=== PATIENT | male | born 1980 | race Caucasian/White ===

== ENCOUNTER → 2019-09-03 | Outpatient (CLI) | payer BC ==
--- NOTE | 2019-09-04 19:26 | HOLTMON ---
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 MAX HR 140 MIN HR 46. MULTIPLE PACS,RARE PAC PAIRS AND RARE SV SHORT RUNS. PAGE [address] DEPRESSION WITH HR 140. MORE APPARENT THAN TRACING SELECTED ON PG 19. MOST OF PACS BETWEEN 2300 AND 0L00 SEE PG 5 SUMMARY MULTIPLE PACS AND DOCUMENTED ST DEPRESSION WITH FASTER HR Electronically Signed on 09-04-2019 19:26:12 EDT by Jen Real
== END ==
LOC: M EKG 09:56
PROVIDERS: ATTEND Surgery
DX: I47.9 Paroxysmal tachycardia, unspecified (principal)

== ENCOUNTER → 2020-10-16 | Outpatient (CLI) | payer BC ==
--- NOTE | 2020-10-16 09:31 | REP ---
INDICATION: ENLARGED LIVER. COMPARISON: None FINDINGS: Multiple ultrasonographic images of the liver show the hepatic parenchymal echo texture to appear unremarkable. There are no focal masses. There is no intrahepatic ductal dilatation. Multiple ultrasonographic images of the common bile duct show the common bile duct measure 3 mm in its greatest transverse dimension. Multiple ultrasonographic images of the gallbladder show no focal or diffuse gallbladder wall thickening. There are no echogenic foci within the gallbladder lumen, which casts acoustic shadows. There is no pericholecystic edema. Images of the pancreatic region show no gross abnormality. The imaged portion of the right kidney is unremarkable. IMPRESSION: Unremarkable right upper quadrant ultrasound. Accredited by the [employer] in General Ultrasound. <Electronically signed by Valentin Tierney > 10/16/20 0928
== END ==
LOC: M RAD 07:56
PROVIDERS: ATTEND Surgery
DX: K76.9 Liver disease, unspecified (principal)

== ENCOUNTER 2024-01-27 16:49 | Inpatient (IN) | payer OTHER ==
[~2024-01-27] VITALS: Ht 185.4 cm; Wt 66.8 kg
[~2024-01-27 16:49] MED LIST: B-12100010 PO; LEXA5TAB13 PO; NAPR220C14 PO; OMEP40CA4 PO; THERTAB52 PO; VITA100093 PO
[2024-01-27] MEDS ORDERED: AMOX875T (17:13)
[2024-01-27 18:11] LABS: BASO % 0.2 % (0.0-1.0); EOS % 0.1 % (0.0-3.0); HEMATOCRIT 41.2 % (42.0-52.0); HEMOGLOBIN 14.2 g/dl (13.5-17.5); LYMPH # 0.9 10^3/uL (1.5-5.0); LYMPH % 5.3 % (24.0-44.0); MEAN CORPUSCULAR HEMOGLOBIN 32.4 pg (27.0-33.0); MEAN CORPUSCULAR HGB CONC 34.5 g/dl (32.0-36.5); MEAN CORPUSCULAR VOLUME 94.1 fl (80.0-96.0); MONO # 1.6 10^3/uL (0.0-0.8); MONO % 8.8 % (2.0-8.0); NEUTROPHILS % 85.1 % (36.0-66.0); PLATELET COUNT, AUTOMATED 229 10^3/uL (150-450); RED BLOOD COUNT 4.38 10^6/uL (4.30-6.10); WHITE BLOOD COUNT 17.6 10^3/uL (4.0-10.0)
[2024-01-27 18:19] LABS: BLOOD UREA NITROGEN 11 MG/DL (9-23); CALCIUM LEVEL 9.6 MG/DL (8.5-10.1); CARBON DIOXIDE LEVEL 31 MMOL/L (20-31); CHLORIDE LEVEL 101 MMOL/L (98-107); CREATININE FOR GFR 0.83 MG/DL (0.70-1.30); GLOMERULAR FILTRATION RATE > 60.0 (>60); GLUCOSE, FASTING 113 MG/DL (60-100); POTASSIUM SERUM 4.1 MMOL/L (3.5-5.1); SODIUM LEVEL 137 MMOL/L (136-145)
[2024-01-27] MEDS ORDERED: ISOVUE-370 76% 100ML VIAL As Ordered ONE (19:57)
[2024-01-27] MEDS: NS 1,000 ML IV ONE (20:39)
[2024-01-27] MEDS: KETOROLAC 30 MG/ML 1ML VIAL IV ONE (20:39)
[2024-01-27] MEDS: ACETAMINOPHEN *IV* 1,000 MG in IV 1 EA IV ONE (20:39)
[2024-01-27] MEDS: AMPICILLIN SOD/SULBACTAM SOD 3 GM in D5W MINI-BAG PLUS 100 ML IV ONE (21:17)
[2024-01-27] MEDS ORDERED: NAPR-1010 PO (22:05)
[2024-01-27] MEDS ORDERED: AMOX875T PO (22:05)
[2024-01-27] MEDS ORDERED: LEXA1TAB PO (22:05)
[2024-01-27] MEDS ORDERED: MULT-40 PO (22:05)
[2024-01-27] MEDS ORDERED: HOME MED LIST COMPLETE! XX SCH (22:10)
[2024-01-27] MEDS ORDERED: PILL CUTTER 1 EACH XX PRN (23:00)
[2024-01-27 23:42] VITALS: BP 153/72; TEMP 97.5; O2SAT 96
[2024-01-27] MEDS: ESCITALOPRAM OXALATE 10 MG TAB (LEXAPRO) PO SCH (23:45)
[2024-01-27] MEDS: CYANOCOBALAMIN 500 MCG TAB PO SCH (23:46)
[2024-01-28] VITALS (17 sets, daily range): BP systolic 119–153; BP diastolic 23–82; TEMP 97.3–99; O2SAT 94–97
[2024-01-28] MEDS: AMPICILLIN SOD/SULBACTAM SOD 3 GM in D5W MINI-BAG PLUS 100 ML IV SCH (02:42)
[2024-01-28] MEDS: ACETAMINOPHEN TAB 650MG DOSE (2X325MG) PO PRN (03:24)
[2024-01-28] MEDS: KETOROLAC 30 MG/ML 1ML VIAL IV PRN (03:25)
[2024-01-28 06:56] LABS: BASO % 0.2 % (0.0-1.0); EOS % 0.1 % (0.0-3.0); HEMATOCRIT 40.1 % (42.0-52.0); HEMOGLOBIN 13.6 g/dl (13.5-17.5); LYMPH % 5.2 % (24.0-44.0); MEAN CORPUSCULAR HEMOGLOBIN 32.3 pg (27.0-33.0); MEAN CORPUSCULAR HGB CONC 33.9 g/dl (32.0-36.5); MEAN CORPUSCULAR VOLUME 95.2 fl (80.0-96.0); MONO # 1.7 10^3/uL (0.0-0.8); MONO % 9.3 % (2.0-8.0); NEUTROPHILS # 15.7 10^3/uL (1.5-8.5); NEUTROPHILS % 84.5 % (36.0-66.0); PLATELET COUNT, AUTOMATED 217 10^3/uL (150-450); RED BLOOD COUNT 4.21 10^6/uL (4.30-6.10); WHITE BLOOD COUNT 18.6 10^3/uL (4.0-10.0)
[2024-01-28] MEDS: OMEPRAZOLE 20MG CAP PO SCH (09:00)
[2024-01-28] MEDS: VITAMIN D 1,000 INTERNATIONAL UNITS TABLET PO SCH (09:00)
[2024-01-28] MEDS ORDERED: dexAMETHasone 20MG/5ML VIAL As Ordered ONE (09:54)
[2024-01-28] MEDS: ACETAMINOPHEN *IV* 1,000 MG in IV 1 EA IV PRN (09:56)
[2024-01-28] MEDS: dexAMETHasone 20MG/5ML VIAL IV SCH (09:56)
[2024-01-28] MEDS ORDERED: NALOXONE INJ 0.4MG/1ML VIAL IV PRN (10:50)
[2024-01-28] MEDS ORDERED: MORPHINE 4 MG/ML 1ML VIAL IV PRN (10:50)
[2024-01-28] MEDS: MORPHINE 4 MG/ML 1ML VIAL IV ONE (11:36)
[2024-01-29] VITALS (11 sets, daily range): BP systolic 117–130; BP diastolic 58–73; TEMP 98.1–98.5; O2SAT 94–98
[2024-01-29 07:52] LABS: BASO % 0.1 % (0.0-1.0); HEMATOCRIT 41.4 % (42.0-52.0); HEMOGLOBIN 14.2 g/dl (13.5-17.5); LYMPH # 0.6 10^3/uL (1.5-5.0); LYMPH % 3.5 % (24.0-44.0); MEAN CORPUSCULAR HEMOGLOBIN 32.3 pg (27.0-33.0); MEAN CORPUSCULAR HGB CONC 34.3 g/dl (32.0-36.5); MEAN CORPUSCULAR VOLUME 94.1 fl (80.0-96.0); MONO # 0.5 10^3/uL (0.0-0.8); MONO % 3.2 % (2.0-8.0); NEUTROPHILS # 15.2 10^3/uL (1.5-8.5); NEUTROPHILS % 92.5 % (36.0-66.0); PLATELET COUNT, AUTOMATED 263 10^3/uL (150-450); WHITE BLOOD COUNT 16.4 10^3/uL (4.0-10.0)
[2024-01-29 08:07] LABS: ERYTHROCYTE SEDIMENTATION RATE 66 mm/hr (0-15)
[2024-01-29 08:28] LABS: PROCALCITONIN 0.12 ng/ml
[2024-01-29 08:38] LABS: BLOOD UREA NITROGEN 17 MG/DL (9-23); CALCIUM LEVEL 9.4 MG/DL (8.5-10.1); CARBON DIOXIDE LEVEL 28 MMOL/L (20-31); CHLORIDE LEVEL 103 MMOL/L (98-107); CREATININE FOR GFR 0.61 MG/DL (0.70-1.30); GLOMERULAR FILTRATION RATE > 60.0 (>60); GLUCOSE, FASTING 143 MG/DL (60-100); POTASSIUM SERUM 4.3 MMOL/L (3.5-5.1); SODIUM LEVEL 139 MMOL/L (136-145)
[2024-01-29] MEDS ORDERED: AMOX875T2 PO (16:15)
[2024-01-29] MEDS ORDERED: DEXA4TA PO (16:15)
[2024-01-30 04:25] VITALS: BP 109/72; TEMP 97.9; O2SAT 99
[2024-01-30 07:18] LABS: BASO % 0.1 % (0.0-1.0); HEMATOCRIT 36.5 % (42.0-52.0); HEMOGLOBIN 12.5 g/dl (13.5-17.5); LYMPH # 0.5 10^3/uL (1.5-5.0); LYMPH % 3.3 % (24.0-44.0); MEAN CORPUSCULAR HGB CONC 34.2 g/dl (32.0-36.5); MEAN CORPUSCULAR VOLUME 93.4 fl (80.0-96.0); MONO # 0.6 10^3/uL (0.0-0.8); MONO % 4.1 % (2.0-8.0); NEUTROPHILS # 14.5 10^3/uL (1.5-8.5); NEUTROPHILS % 91.6 % (36.0-66.0); PLATELET COUNT, AUTOMATED 241 10^3/uL (150-450); RED BLOOD COUNT 3.91 10^6/uL (4.30-6.10); WHITE BLOOD COUNT 15.8 10^3/uL (4.0-10.0)
[2024-01-30 07:44] LABS: BLOOD UREA NITROGEN 19 MG/DL (9-23); CALCIUM LEVEL 9.2 MG/DL (8.5-10.1); CARBON DIOXIDE LEVEL 29 MMOL/L (20-31); CHLORIDE LEVEL 104 MMOL/L (98-107); CREATININE FOR GFR 0.57 MG/DL (0.70-1.30); GLOMERULAR FILTRATION RATE > 60.0 (>60); GLUCOSE, FASTING 139 MG/DL (60-100); POTASSIUM SERUM 4.2 MMOL/L (3.5-5.1); SODIUM LEVEL 140 MMOL/L (136-145)
[2024-01-30 12:00] VITALS: BP 111/52; TEMP 98.1; O2SAT 97
== END 2024-01-30 16:45 | disposition home or self-care (01) | DRG 153 ==
LOC: M ED 16:49 → M ED INP 22:01 → M MS5PR 23:20 → M PCU 01-28 05:50 → M MS5PR 01-29 15:05
PROVIDERS: ADMIT Internal Medicine; ATTEND General Practice
PROC: 0WJ34ZZ Inspection of Oral Cavity and Throat, Percutaneous Endoscopic Approach (ICD-10-PCS; principal; 2024-01-28)
DX: J39.0 Retropharyngeal and parapharyngeal abscess (principal); F41.9 Anxiety disorder, unspecified; K21.9 Gastro-esophageal reflux disease without esophagitis; E55.9 Vitamin D deficiency, unspecified; R73.9 Hyperglycemia, unspecified; R47.1 Dysarthria and anarthria; H93.19 Tinnitus, unspecified ear; Z79.899 Other long term (current) drug therapy